=== PATIENT | male | born 1985 | race Hispanic/Latino ===

== ENCOUNTER 2018-07-30 10:16 | Emergency (ER) | payer OTHER ==
[2018-07-30 11:17] VITALS: BP 145/69; PULSE 73; RESP 18; TEMP 98.2; O2SAT 98; BMI 32.3
--- NOTE | 2018-07-30 12:08 | ED PDOC ---
Arrival/HPI - General Chief Complaint: Eye Problem Time Seen by Provider: 07/30/18 11:05 Historian: Patient - History of Present Illness Narrative History of Present Illness (Text): 07/30/18 11:30 32 year old male, with no significant past medical history, presents to the Emergency department for evaluation of possible foreign body in left eye sustained prior to arrival. Patient reports working with metal at his job when a piece of the metal flew into his left eye. Patient informs flushing his eye thoroughly at work however, he worries something may still be present, prompting him to present to the ED for evaluation. Patient denies any pain or vision changes. Patient denies any other associated somatic complaints. Patient denies any headache, dizziness, photophobia, fever, chills, nausea, vomiting, chest pain, shortness of breath or any other complaints. Time/Duration: Prior to Arrival Symptom Onset: Gradual Symptom Course: Improving Activities at Onset: Light Context: Work Past Medical History - Provider Review Nursing Documentation Reviewed: Yes - Psychiatric Hx Substance Use: No - Surgical History Hx Appendectomy: Yes (2010) Family/Social History - Physician Review Nursing Documentation Reviewed: Yes Family/Social History: Unknown Family HX Smoking Status: Heavy Smoker > 10 Cigarettes Daily Hx Alcohol Use: Yes Frequency of alcohol use: Socially Hx Substance Use: No Allergies/Home Meds Allergies/Adverse Reactions: Allergies levofloxacin [From Levaquin] Allergy (Verified 07/30/18 11:11) SWELLING Review of Systems - Physician Review All systems were reviewed & negative as marked: Yes - Review of Systems Constitutional: absent: Fevers Eyes: Other (Foreign body in left eye ). absent: Vision Changes, Photophobia, Eye Pain Respiratory: absent: SOB Cardiovascular: absent: Chest Pain, MOORE Gastrointestinal: absent: Abdominal Pain, Diarrhea, Nausea, Vomiting Genitourinary Male: absent: Dysuria, Urinary Output Changes Musculoskeletal: absent: Back Pain, Neck Pain Skin: absent: Rash Neurological: absent: Headache, Dizziness Physical Exam Vital Signs Reviewed: Yes Vital Signs Temp Pulse Resp BP Pulse Ox 07/30/18 11:11 98.2 F 73 18 145/69 98 Temperature: Afebrile Blood Pressure: Normal Pulse: Regular Respiratory Rate: Normal Appearance: Positive for: Well-Appearing, Non-Toxic, Comfortable Pain Distress: None Mental Status: Positive for: Alert and Oriented X 3 - Systems Exam Head: Present: Atraumatic, Normocephalic Pupils: Present: PERRL Extroacular Muscles: Present: EOMI Conjunctiva: Present: Normal, Other (No foreign body noted) Neck: Present: Normal Range of Motion Respiratory/Chest: Present: Clear to Auscultation, Good Air Exchange. No: Respiratory Distress, Accessory Muscle Use Cardiovascular: Present: Regular Rate and Rhythm, Normal S1, S2. No: Murmurs Abdomen: No: Tenderness, Distention, Peritoneal Signs Upper Extremity: Present: Normal Inspection. No: Cyanosis, Edema Lower Extremity: Present: Normal Inspection. No: Edema Neurological: Present: GCS=15, CN II-XII Intact, Speech Normal Skin: Present: Warm, Dry, Normal Color. No: Rashes Psychiatric: Present: Alert, Oriented x 3, Normal Insight, Normal Concentration Medical Decision Making ED Course and Treatment: 07/30/18 11:30 Impression: 32 year old male presents to the Emergency department for evaluation of possible foreign body in left eye. Plan: -- Eye flush -- Reassess and disposition Prior Visits: Notes and results from previous visits were reviewed. Progress Notes: No foreign body noted in L eye. Eye irrigated with normal saline. Fluorescein dye applied and left eye examined under Castellanos lamp, no corneal abrasion noted. Patient has no change in vision. Advised refraining from rubbing the eye and using safety goggles when at work. Return for any new or worsening symptoms. - Scribe Statement The provider has reviewed the documentation as recorded by the Scribe Helen Hedrick. All medical record entries made by the Scribe were at my direction and personally dictated by me. I have reviewed the chart and agree that the record accurately reflects my personal performance of the history, physical exam, medical decision making, and the department course for this patient. I have also personally directed, reviewed, and agree with the discharge instructions and disposition. Disposition/Present on Arrival - Present on Arrival Any Indicators Present on Arrival: No History of DVT/PE: No History of Uncontrolled Diabetes: No Urinary Catheter: No History of Decub. Ulcer: No History Surgical Site Infection Following: None - Disposition Have Diagnosis and Disposition been Completed?: Yes Diagnosis: Foreign body in eye Disposition: HOME/ ROUTINE Disposition Time: 12:41 Condition: STABLE Discharge Instructions (ExitCare): Foreign Body in Eye (DC) Additional Instructions: JENNIFER MONTANEZ, thank you for letting us take care of you today. Your provider was Lian Mohamud MD and you were treated for FB IN EYE. The emergency medical care you received today was directed at your acute symptoms. If you were prescribed any medication, please fill it and take as directed. It may take several days for your symptoms to resolve. Return to the Emergency Department if your symptoms worsen, do not improve, or if you have any other problems. Please contact your doctor or call one of the physicians/clinics you have been referred to that are listed on the Patient Visit Information form that is included in your discharge packet. Bring any paperwork you were given at discharge with you along with any medications you are taking to your follow up visit. Our treatment cannot replace ongoing medical care by a primary care provider outside of the emergency department. Thank you for allowing the [facility] team to be part of your care today. If you had an X-Ray or CT scan: A Radiologist will review the ED reading if any change in treatment is needed we will contact you. If you had a blood, urine, or wound culture: It will take several days for the results, if any change in treatment is needed we will contact you. If you had an STI test: It will take 48 hours for the results. Please call after 1 week if you have not heard back. Referrals: FAMILY PROVIDER,NO [Primary Care Provider] - Follow up with primary Forms: Amartus (Nepali)
== END 2018-07-30 12:48 | disposition home or self-care (01) ==
LOC: ED 10:16
DX: T15.92XA Foreign body on external eye, part unspecified, left eye, initial encounter (principal); X58.XXXA Exposure to other specified factors, initial encounter; Y92.89 Other specified places as the place of occurrence of the external cause; Y99.0 Civilian activity done for income or pay